=== PATIENT | female | born 1955 ===

== ENCOUNTER 2023-08-30 03:52 | Outpatient (CLI) | payer MEDICARE | END 2023-08-30 23:59 | disposition critical access hospital (66) | LOC: EMS 03:52 | DX: M54.50 Low back pain, unspecified (principal); W18.11XA Fall from or off toilet without subsequent striking against object, initial encounter; Y92.002 Bathroom of unspecified non-institutional (private) residence as the place of occurrence of the external cause | CPT/HCPCS: A0425; A0429 ==

== ENCOUNTER 2023-08-30 04:01 | Emergency (ER) | payer MEDICARE ==
--- NOTE | 2023-08-30 04:28 | ED Physician Documentation ---
History of Present Illness - Stated complaint Stated Complaint: FALL/BACK PX - Chief complaint Chief Complaint: Back Pain - History obtained from History obtained from: Patient - Additonal information Additional information: 67yF p/w R lower back pain s/p mechanical fall from standing onto bottom while in the bathroom. denies other injury, denies midline pain or neck pain or head injury. PD PAST MEDICAL HISTORY - Past Medical History Past Medical History: Yes Musculoskeletal: Osteoporosis Other Past Medical History: Chronic back pain. Serotonin syndrome - Past Surgical History Past Surgical History: No - Present Medications Home Medications: Ambulatory Orders Medication Instructions Recorded Confirmed Albuterol 08/30/23 Fluticasone Propion/Salmeterol 08/30/23 [Advair 100-50 Diskus] Liothyronine Sodium 08/30/23 Quetiapine Fumarate [Seroquel] 08/30/23 oxyCODONE [Roxicodone] 08/30/23 - Allergies Allergies/Adverse Reactions: Allergies Allergy/AdvReac Type Severity Reaction Status Date / Time iodine Allergy Unknown Verified 08/30/23 04:05 hydromorphone [From Dilaudid] AdvReac Rash Verified 08/30/23 04:05 Serotonin 5HT-3 Antagonists AdvReac Unknown Verified 08/30/23 04:05 tramadol AdvReac Unknown Verified 08/30/23 04:05 - Social History Does the pt smoke?: No Smoking Status: Never smoker Does the pt drink ETOH?: No Does the pt have substance abuse?: No - Immunizations Immunizations are current?: Yes - POLST Patient has POLST: No PD ED PE NORMAL - Vitals Vital signs reviewed: Yes - General General: Alert and oriented X 3, No acute distress, Other (mordbidly obese) - HEENT HEENT: Atraumatic, PERRL, EOMI, Moist mucous membranes, Pharynx benign - Neck Neck: No bony TTP - Cardiac Cardiac: RRR - Back Back: No spinal TTP, Other (R lower back discomfort to palpation) - Derm Derm: Normal color, Warm and dry, Other (no ecchymosis) - Extremities Extremities: No deformity, Other (ambulatory without difficulty) Results - Vitals Vitals: Vital Signs - 24 hr 08/30/23 04:06 Temperature 36.1 C L Heart Rate 80 Respiratory 16 Rate Blood Pressure 153/73 H O2 Saturation 97 Oxygen O2 Source Room air PD Medical Decision Making - ED course ED course: 67yF p/w R hip and R lower back pain s/p fall onto bottom from standing. Pain improved s/p 10mg IM morphine. CXR shows no lower rib fractures and hip xr looks benign. Plan to f/u outpatient with pcp routinely. return precautions given. Departure - Departure Clinical Impression: Back pain, Fall Condition: Stable Instructions: Falls Risks Prevent Comments: You were seen in the emergency department for evaluation after a fall. Your imaging showed no acute injuries but you likely have some muscle strain. You can take tylenol as needed for pain in combination with your home pain medication regimen. Please follow-up with your primary care provider for possible referral to physical therapy and return to the emergency department if you have any new or worsening symptoms or other concerns.
[2023-08-30] MEDS: MORPHINE 10 MG/ML VIAL IM STA (04:38)
[2023-08-30 05:12] VITALS: BP 153/73; O2SAT 97
--- NOTE | 2023-08-30 09:15 | XRAY Report ---
PROCEDURE: Chest 1V INDICATIONS: R lateral pain s/p fall from standing TECHNIQUE: One view of the chest was acquired. COMPARISON: None. FINDINGS: Surgical changes and devices: None. Lungs and pleura: No pleural effusions or pneumothorax. Lungs are clear. Mediastinum: Mediastinal contours appear normal. Heart is enlarged. Bones and chest wall: No suspicious bony lesions. Overlying soft tissues appear unremarkable. IMPRESSION: No acute cardiopulmonary process. Reviewed by: Tanesha Valentino MD, PhD on 08/30/2023 9:13 AM PDT Approved by: Tanesha Valentino MD, PhD on 08/30/2023 9:13 AM PDT Station ID: [id number]
--- NOTE | 2023-08-30 09:16 | XRAY Report ---
PROCEDURE: Hip w/Pelvis 2-3V RT INDICATIONS: R hip pain s/p fall from standing TECHNIQUE: AP of the pelvis and 2 views of the right hip were acquired. COMPARISON: None. FINDINGS: Bones: No fractures or dislocations. No suspicious bony lesions. Soft tissues: No suspicious soft tissue calcifications or masses. IMPRESSION: No acute bony abnormality. Reviewed by: Tanesha Valentino MD, PhD on 08/30/2023 9:14 AM PDT Approved by: Tanesha Valentino MD, PhD on 08/30/2023 9:14 AM PDT Station ID: [id number]
--- NOTE | 2023-08-30 15:29 | ED Physician Documentation ---
ED Addendum - Addendum Addendum: 08/30/23 15:26 Received call from Pharmacy, oxycodone/apap 10/325 was written for q2H prn pain. Reviewed Dr. Guzman's note and will change to q6h Departure - Departure Disposition: 01 Home, Self Care Clinical Impression: Back pain, Fall Condition: Stable Instructions: Falls Risks Prevent Prescriptions: Baclofen 5 mg PO BID PRN #20 tablet PRN Reason: Pain 5-7 Oxycodone HCl/Acetaminophen [Percocet 10-325 mg Tablet] 1 each PO Q6H PRN #15 tablet MDD 4 PRN Reason: pain Comments: You were seen in the emergency department for evaluation after a fall. Your imaging showed no acute injuries but you likely have some muscle strain. Pain meds sent to [facility] pharmacy. Please follow-up with your primary care provider for possible referral to physical therapy and return to the emergency department if you have any new or worsening symptoms or other concerns. Discharge Date/Time: 08/30/23 05:59
== END 2023-08-30 05:59 | disposition home or self-care (01) ==
LOC: ED 04:01
DX: M54.50 Low back pain, unspecified (principal); M25.551 Pain in right hip; W18.39XA Other fall on same level, initial encounter; Y92.002 Bathroom of unspecified non-institutional (private) residence as the place of occurrence of the external cause
CPT/HCPCS: 96372; 99284